=== PATIENT | female | born 1965 | race Caucasian/White ===

== ENCOUNTER 2019-02-08 11:37 | Emergency (ER) | payer SELFPAY ==
--- NOTE | 2019-02-08 13:02 | UC ---
Minor Trauma HPI - HPI Summary HPI Summary: 53-year-old female who fell on the ice and [place]. Today she complains of right wrist pain and right hip pain and some right-sided neck pain. She did not hit her head and there was no loss of consciousness. Since then she states swelling has gone down however the area still seem to hurt. She's had no vomiting and no change in her normal mental status. - History of Current Complaint Stated Complaint: SP FALL-RT WRIST,ELBOW AND HIP PAIN Time Seen by Provider: 02/08/19 12:51 Hx Obtained From: Patient Hx Last Menstrual Period: hysterectomy ?: No Onset/Duration: Sudden Onset Onset Of Pain: Immediate Severity Initially: Moderate Severity Currently: Mild Mechanism Of Injury: Fall From A Standing Position Aggravating Factor(s): Movement Alleviating Factor(s): Elevation, Ice, Rest Associated Signs And Symptoms: Positive: Other: - Patient had swelling initially 1 week ago however the swelling has improved since then. - Allergies/Home Medications Allergies/Adverse Reactions: Allergies Allergy/AdvReac Type Severity Reaction Status Date / Time Penicillins Allergy Hives Verified 02/08/19 13:01 diatrizoate sodium AdvReac Diarrhea Verified 02/08/19 13:01 Sulfa (Sulfonamide AdvReac Unknown Verified 02/08/19 13:01 Antibiotics) Reaction Details Home Medications: Home Medications Magnesium 1 tab PO DAILY 02/08/19 [History Confirmed 02/08/19] PMH/Surg Hx/FS Hx/Imm Hx Previously Healthy: Yes - Surgical History Surgical History: Yes Surgery Procedure, Year, and Place: 1993 CSECTION, [facility]. 2003 HYSTERECTOMY WITH REPAIR OF TIPPED BLADDER,[place], [place]. RIGHT Rotator cuff, labral and biceps repair Oct 2015 [facility] [place] - Family History Known Family History: Positive: Cardiac Disease, Hypertension, Other - RA(mother ) - Social History Alcohol Use: Weekly Alcohol Amount: 5 Substance Use Type: None Substance Use Comment - Amount & Last Used: hydrocodone for shoulder Smoking Status (MU): Current Every Day Smoker Type: Cigarettes, eCigarettes Amount Used/How Often: 1/2 PPD Length of Time of Smoking/Using Tobacco: 20 YEARS Have You Smoked in the Last Year: Yes Household Exposure Type: Cigarettes - Immunization History Most Recent Influenza Vaccination: Not the Season Review of Systems All Other Systems Reviewed And Are Negative: Yes Skin: Positive: Bruising - Bruising to right hip area., Other - Patient states she has bruising and swelling over her wrist as well but that has improved. Musculoskeletal: Positive: Other: - Patient complains of right hip pain today, right wrist pain and right upper back/neck pain. She denies C-spine tenderness. Is Patient Immunocompromised?: No Physical Exam Triage Information Reviewed: Yes Appearance: Well-Appearing, No Pain Distress, Well-Nourished Vital Signs Reviewed: Yes Eyes: Positive: Conjunctiva Clear, Other: - PERRLA, EOMI, negative eye drift ENT: Positive: Hearing grossly normal, Pharynx normal, TMs normal, Uvula midline Neck exam: Normal Neck: Positive: Supple, Nontender - Patient is nontender over the C-spine but she is tender to the right of the C-spine and therefore [place] collar remains in place., No Lymphadenopathy Respiratory: Positive: Chest non-tender, Lungs clear, Normal breath sounds, No respiratory distress, No accessory muscle use - Further complete examination was done after the C-spine CT was negative. Cardiovascular: Positive: RRR, No Murmur, Pulses Normal, Brisk Capillary Refill Abdomen Description: Positive: Nontender, No Organomegaly, Soft. Negative: CVA Tenderness (R), CVA Tenderness (L), Distended, Guarding, Hepatomegaly, Splenomegaly Bowel Sounds: Positive: Present Musculoskeletal: Positive: Strength Intact, ROM Intact, Other: - Good arm and leg strength against resistance, good peripheral pulses neuro sensation and capillary refill. Skull is intact and nontender. Neurological: Positive: Alert, Muscle Tone Normal - Cranial nerves II through XII are intact, good finger to nose bilaterally, reflexes +2 at the knee, Romberg negative, good heel-to-toe forward and backward, normal dystidiokinesis Psychological: Positive: Normal Response To Family, Age Appropriate Behavior Skin: Positive: Other - Mild bruise to the right hip area which appears to be resolving. No deformity, swelling, erythema is noted. Minor Trauma Course/Dx - Course Course Of Treatment: Right hip: FINDINGS: BONE DENSITY: Normal. BONES: There is no displaced fracture. JOINTS: There is no arthropathy. ALIGNMENT: There is no dislocation. SOFT TISSUES: Unremarkable. OTHER FINDINGS: None. IMPRESSION: NO RADIOGRAPHIC EVIDENCE FOR HIP FRACTURE. X-RAYS MAY BE NEGATIVE WITH NONDISPLACED HIP FRACTURE, IF THERE IS PERSISTENT CLINICAL CONCERN, RECOMMEND CONSIDERATION OF MRI. IN THE SETTING OF CONTRAINDICATION TO MRI OR LIMITATION IN EMERGENT ACCESS TO MRI, CT WOULD BE SUGGESTED. Right wrist:FINDINGS: There is lateral and anterior soft tissue swelling. The bones are normal alignment no fracture is seen. There is moderate osteoarthritic change in the scaphotrapezial joint. IMPRESSION: NO EVIDENCE FOR FRACTURE. IF THE PATIENT'S SYMPTOMS PERSIST RECOMMEND FOLLOW-UP IMAGING. C-Spine:FINDINGS: BRAIN: The visualized brain is unremarkable CENTRAL CANAL: Evaluation of the central canal is limited on CT technique; however, there is no obvious canalicular mass or epidural hemorrhage. ALIGNMENT: There is straightening with reversal of the normal cervical lordosis. VERTEBRAL BODIES: There is multilevel anterolateral marginal osteophyte formation with associated sclerotic reactive endplate changes. There is no displaced fracture. JOINTS: There is uncovertebral and facet osteoarthritis. There is osteoarthritis of the atlantoaxial articulation. MUSCULATURE: Unremarkable INTERVERTEBRAL DISCS: There is diffuse loss of intervertebral disc height. AXIAL IMAGES: C2-C3: There is no osseous neural foraminal narrowing or central canal stenosis. C3-C4: There is mild bilateral neuroforaminal narrowing. There is no osseous central canal stenosis. C4-C5: There is severe bilateral neuroforaminal narrowing. There is no osseous central canal stenosis. C5-C6: There is moderate bilateral neuroforaminal narrowing. There is no osseous central canal stenosis. C6-C7: There is moderate bilateral neuroforaminal narrowing. There is no osseous central canal stenosis. C7-T1: There is no osseous neural foraminal narrowing or central canal stenosis. SOFT TISSUES: The visualized soft tissues of the neck are unremarkable. The prevertebral fat stripe is preserved. OTHER: None. IMPRESSION: DEGENERATIVE DISC DISEASE AND OSTEOARTHRITIS NO ACUTE OSSEOUS INJURY TO THE CERVICAL SPINE. - Differential Dx/Diagnosis Provider Diagnosis: Contusion of right hip, Contusion of right wrist, initial encounter, Neck pain Discharge ED - Sign-Out/Discharge Documenting (check all that apply): Patient Departure All imaging exams completed and their final reports reviewed: Yes - Discharge Plan Condition: Good Disposition: HOME Patient Education Materials: Contusion in Adults (ED) Referrals: Jolynn Hill PA [Primary Care Provider] - Additional Instructions: Continue to take Tylenol for pain. You can apply heat to the sore areas. Definite follow-up with your primary care provider for any further concerns. - Billing Disposition and Condition Condition: GOOD Disposition: Home
[2019-02-08 13:06] VITALS: BP 121/87
== END 2019-02-08 14:12 | disposition home or self-care (01) ==
LOC: UCCORT 11:37
DX: S60.211A Contusion of right wrist, initial encounter (principal); S70.01XA Contusion of right hip, initial encounter; M54.2 Cervicalgia; M50.30 Other cervical disc degeneration, unspecified cervical region; M47.892 Other spondylosis, cervical region; F17.210 Nicotine dependence, cigarettes, uncomplicated; F17.290 Nicotine dependence, other tobacco product, uncomplicated; Z88.0 Allergy status to penicillin; Z91.09 Other allergy status, other than to drugs and biological substances; Z88.2 Allergy status to sulfonamides; W00.9XXA Unspecified fall due to ice and snow, initial encounter; Y92.9 Unspecified place or not applicable
CPT/HCPCS: 72125; 99211; G0463